=== PATIENT | male | born 1955 | race Caucasian/White ===

== ENCOUNTER 2017-03-04 12:51 | Emergency (ER) | payer OTHER ==
[2017-03-04] MEDS ORDERED: ROSUVASTATIN CA20 MG PO (13:02)
[2017-03-04] MEDS ORDERED: ASPIR-LOW81 M1 PO (13:02)
[2017-03-04] MEDS ORDERED: GLUCOSAMINE &1 EAC1 PO (13:02)
[2017-03-04] MEDS ORDERED: FISH OIL 11000 MG/CA PO (13:02)
[2017-03-04] MEDS ORDERED: FLONASE ALLERG9.9 ML (13:32)
[2017-03-04 13:58] LABS: BASO % 0.5 % (0-2); EOSINOPHIL ABSOLUTE COUNT 0.3 tho/cmm (0.0-0.7); HCT-HEMATOCRIT 40.8 % (36.0-53.5); HGB-HEMOGLOBIN 14.1 gm/dl (13.5-17.0); IMMATURE GRANULOCYTES ABSOLUTE 0.01 tho/cmm (0-0.03); IMMATURE GRANULOCYTES PERCENT 0.1 % (0-0.3); LYMPH % 23.2 % (20-45); MCH (MEAN CORPUSCULAR HGB) 31.5 pg (28.0-32.0); MCHC MEAN CORPUSCULAR HGB CONC 34.6 % (32.0-36.0); MCV (MEAN CELL VOLUME) 91.3 fl (82.0-96.0); MEAN PLATELET VOLUME 10.1 cmc (9.4-12.4); MONO % 6.8 % (0-12); MONOCYTE ABSOLUTE COUNT 0.6 tho/cmm (0.0-1.2); NEUTROPHIL ABSOLUTE COUNT 5.8 tho/cmm (1.6-8.0); NEUTROPHIL-AUTOMATED 5.8 tho/cmm (1.6-8.0); NEUTROPHILS % 66.4 % (40-80); PLATELET COUNT 197 tho/cmm (150-450); RED BLOOD COUNT 4.47 mil/cmm (4.40-5.70); RED CELL DISTRIBUTION WIDTH 12.9 % (12.4-16.4); WHITE BLOOD COUNT 8.7 tho/cmm (4.0-10.0)
[2017-03-04 14:16] LABS: ALB/GLOB RATIO 1.1 (0.8-2.0); ALBUMIN 3.2 g/dl (3.5-5.0); ALKALINE PHOSPHATASE 85 U/L (33-138); ALT/SGPT 14 U/L (12-78); ANION GAP 9 mmol/L (0-20); AST/SGOT 18 U/L (10-40); BILIRUBIN,TOTAL 0.4 mg/dl (0.0-1.5); BLOOD UREA NITROGEN 13 mg/dl (6-24); CALCIUM 8.2 mg/dl (8.5-10.5); CARBON DIOXIDE-VENOUS 29 mmol/L (22-32); CHLORIDE 109 mmol/l (96-110); CKMB 1.6 ng/ml (<3.6); CREATININE 0.69 mg/dl (0.60-1.30); GLUCOSE 94 mg/dL (70-110); POTASSIUM 4.2 mmol/L (3.7-5.1); SODIUM 143 mmol/L (135-145); eGFR VALUE FOR BLACK >90 mL/Min
[2017-03-04 14:23] LABS: CREATINE PHOSPHOKINASE (CPK) 83 U/L (35-232)
[2017-03-04] MEDS ORDERED: MECLIZINE HCL25 M3 PO (14:54)
== END 2017-03-04 15:00 ==
LOC: EDMED 12:51
PROVIDERS: Emergency Medicine
DX: R42 Dizziness and giddiness (principal); E78.5 Hyperlipidemia, unspecified; F17.200 Nicotine dependence, unspecified, uncomplicated
CPT/HCPCS: J7030